=== PATIENT | female | born 1970 | race Caucasian/White ===

== ENCOUNTER 2017-09-08 11:40 | Emergency (ER) | payer SELFPAY ==
[~2017-09-08] VITALS: Ht 167.6 cm; Wt 70.5 kg
[2017-09-08 13:42] VITALS: BP 118/64
[2017-09-08] MEDS ORDERED: DiphenhydrAMINE HCL 25 MG CAPSULE PO ONE (14:30)
[2017-09-08] MEDS ORDERED: PredniSONE 20 MG TABLET PO ONE (14:30)
== END 2017-09-08 14:37 | disposition home or self-care (01) ==
LOC: EMS 11:42
DX: R21 Rash and other nonspecific skin eruption (principal)
CPT/HCPCS: 81025; 99283; J7512

== ENCOUNTER 2020-06-11 19:16 | Emergency (ER) | payer MEDICAID ==
[~2020-06-11] VITALS: Ht 162.6 cm; Wt 66.4 kg
[2020-06-11 20:27] VITALS: BP 148/87
== END 2020-06-11 20:27 | disposition home or self-care (01) ==
LOC: EMS 19:19
DX: T78.40XA Allergy, unspecified, initial encounter (principal); Z88.0 Allergy status to penicillin; X58.XXXA Exposure to other specified factors, initial encounter
CPT/HCPCS: 99283; Z7502

== ENCOUNTER 2024-12-12 22:11 | Emergency (ER) | payer MEDICAID, OTHER ==
[~2024-12-12] VITALS: Ht 162.6 cm; Wt 68.2 kg
[2024-12-12 22:15] VITALS: BP 156/77; PULSE 75; RESP 18; TEMP 97.6; O2SAT 98
[2024-12-12] MEDS ORDERED: PROPARACAINE HCL 0.5% 15 ML OPHTHALMIC SOLUTION ONE (23:29)
[2024-12-12] MEDS: PROPARACAINE HCL 0.5% 15 ML OPHTHALMIC SOLUTION OU ONE (23:52)
[2024-12-13] MEDS: HYDROCODONE/ACETAMINOPHEN 5-325 MG TABLET PO ONE (00:30)
[2024-12-13] MEDS: TOBRAMYCIN/DEXAMETHASONE 3.5 GM OPHTHALMIC OINTMENT OS ONE (01:55)
[2024-12-13] MEDS: CYCLOPENTOLATE HCL 1% 2 ML OPHTHALMIC SOLUTION OS ONE (01:55)
[2024-12-13] MEDS ORDERED: IBUP-1554 PO (02:15)
[2024-12-13] MEDS ORDERED: ACET-66 PO (02:15)
== END 2024-12-13 03:11 | disposition home or self-care (01) ==
LOC: EMS 22:11
DX: T26.62XA Corrosion of cornea and conjunctival sac, left eye, initial encounter (principal); Z88.0 Allergy status to penicillin; X58.XXXA Exposure to other specified factors, initial encounter; Y93.89 Activity, other specified; Y92.89 Other specified places as the place of occurrence of the external cause; Y99.8 Other external cause status
CPT/HCPCS: 82962; 99284; J9035; Z7502; Z7610